=== PATIENT | female | born 1940 | race Caucasian/White ===

== ENCOUNTER → 2017-12-15 | Outpatient (CLI) | payer MEDICARE, OTHER ==
[~2017-12-15] MED LIST: ALPR-434 PO; ASCO-191 PO; ASPI81TA94 PO; CALC600T63 PO; CHOL500045 PO; ESCI20TA38 PO; ESCI20TA8 PO; ESTR42.5 VG; FLAX100041 PO; GLUC100026 PO; LETPT PO; LOR5/325 PO; LUTE20CA11 PO; MULT-1335 PO; OMEG500C5 PO; PANT40TA65 PO
--- NOTE | 2017-12-15 14:56 | RADIOLOGY IMAGING REPORT ---
FACILITY: [facility] - [place] PATIENT NAME: Ronni Obando : 1940 MR: [id number] V: [id number] EXAM DATE: ORDERING PHYSICIAN: NATALIA OCAMPO TECHNOLOGIST: Location: [facility] Patient: Ronni Obando : 1940 Visit/Account:[id number] Date of Sevice: 12/15/2017 DEXA Scan Clinical history: Osteopenia. Comparison: DEXA scan from 06/26/2015. LUMBAR SPINE: The bone mineral density (BMD) measured from L1-L4 correlates with a Z-score -0.6 and a T-score of - 2.2 which is consistent with osteopenia as defined by the World Health Organization. The correspondi ng risk of fracture in the lumbar spine is increased 4-6 times compared with a young adult reference population. This value has increased by 3.7 % since the prior study. More than 5% change is conside red significant. HIP: Bone mineral density (BMD) measured in the Left total hip region correlates with a Z-score -0.6 and a T-score of -2.2 which is consistent with osteopenia as defined by the World Health Organization. The corresponding risk of fracture in the hip is increased 4-6 times compared with a young adult refe rence population. The total hip value has decreased by 4.1 % since the prior study. More than 5% leonardo nge is considered significant. Bone mineral density (BMD) measured in the Femoral Neck region measures 0.733 g/cm2. IMPRESSION: 1. Lumbar spine: Consistent with osteopenia. There has been No significant change in the bone road test examiner al density since the previous exam. 2. Left Hip: Consistent with osteopenia. There has been No significant change in the bone mineral d ensity of the total hip since the previous exam. 3. Femoral Neck: Bone Mineral Density is 0.733 g/cm2 The next DEXA scan of this patient should include the following sites: L1-L4 and the left hip. FRAX? WHO Fracture Risk Assessment Tool link: <http://www.shef.ac.uk/FRAX/tool.jsp?[email or web address]> PLEASE NOTE: 1) The World Health Organization defines low BMD as follows: T-score Normal > -1 Osteopenia < -1 and > -2.5 Osteoporosis < -2.5 without fractures Established osteoporosis < -2.5 with fractures 2) In general, you may wish to consider: Diagnosis Treatment Follow-up DEXA Normal BMD Prevention 2-3 years Osteopenia Prevention/therapy 1-2 years Osteoporosis Therapy Yearly 3) Fracture risk estimated from the T-score is more accurate for vertebral fractures (often spontane ous) than for hip fractures. Report Dictated By: Emeka Burciaga MD at 12/15/2017 2:50 PM Report E-Signed By: Emeka Burciaga MD at 12/15/2017 2:52 PM WSN:[email or web address]
== END ==
LOC: RAD 07:15
PROVIDERS: ATTEND Family Medicine
DX: M85.89 Other specified disorders of bone density and structure, multiple sites (principal)
CPT/HCPCS: 77080

== ENCOUNTER → 2018-06-25 | Outpatient (CLI) | payer MEDICARE, OTHER ==
[2018-06-25 17:02] LABS: PLATELET COUNT, AUTOMATED 300 K/uL (150-450)
== END ==
LOC: LAB 16:28
PROVIDERS: ATTEND Internal Medicine Medical Oncology
DX: C50.412 Malignant neoplasm of upper-outer quadrant of left female breast (principal); Z17.0 Estrogen receptor positive status [ER+]
CPT/HCPCS: 36415; 82040; 82247; 82306; 82310; 82374; 82378; 82435; 82565; 82947; 84075; 84132; 84155; 84295; 84450; 84460; 84520; 85025; 86300

== ENCOUNTER → 2018-10-10 | Outpatient (CLI) | payer MEDICARE, OTHER | LOC: RESP 21:10 | PROVIDERS: ATTEND Otolaryngology | DX: G47.33 Obstructive sleep apnea (adult) (pediatric) (principal); G47.61 Periodic limb movement disorder ==

== ENCOUNTER → 2018-10-17 | Outpatient (CLI) | payer MEDICARE, OTHER | LOC: LAB 10:04 | PROVIDERS: ATTEND Psychiatry & Neurology Neurology | DX: G62.9 Polyneuropathy, unspecified (principal); R73.9 Hyperglycemia, unspecified | CPT/HCPCS: 36415; 82164; 82607; 83036; 84160; 84165; 84207; 84425; 84443; 86038; 86592 ==

== ENCOUNTER → 2018-12-03 | Outpatient (CLI) | payer MEDICARE, OTHER | LOC: LAB 16:16 | PROVIDERS: ATTEND Psychiatry & Neurology Neurology | DX: G62.9 Polyneuropathy, unspecified (principal); Z79.899 Other long term (current) drug therapy | CPT/HCPCS: 36415; 82175; 82300; 83655; 83825; 83883; 84156; 84443; 86255; 86335 ==

== ENCOUNTER → 2018-12-27 | Outpatient (CLI) | payer MEDICARE, OTHER ==
[~2018-12-27] MED LIST changes: +CHOL200018 PO; +CYAN500T39 PO
== END ==
LOC: LAB 13:43
PROVIDERS: ATTEND Psychiatry & Neurology Neurology
DX: C50.412 Malignant neoplasm of upper-outer quadrant of left female breast (principal)
CPT/HCPCS: 36415; 83921

== ENCOUNTER → 2018-12-28 | Outpatient (CLI) | payer MEDICARE, OTHER ==
[2018-12-28 12:09] LABS: PLATELET COUNT, AUTOMATED 395 K/uL (150-450)
== END ==
LOC: LAB 11:42
PROVIDERS: ATTEND Internal Medicine Medical Oncology
DX: C50.412 Malignant neoplasm of upper-outer quadrant of left female breast (principal); Z17.0 Estrogen receptor positive status [ER+]
CPT/HCPCS: 82040; 82247; 82306; 82310; 82374; 82378; 82435; 82565; 82947; 84075; 84132; 84155; 84295; 84450; 84460; 84520; 85025; 86300